=== PATIENT | female | born 1990 | race Caucasian/White ===

== ENCOUNTER 2025-03-20 11:41 | Inpatient (IN) | payer BC, OTHER ==
[2025-03-20] MEDS ORDERED: ACETAMINOPHEN INJECTION 100 ML ONE (12:12)
[2025-03-20] MEDS ORDERED: FAMOTIDINE 20 MG/50 ML IVPB 20 MG/50 ML MG IVPB ONE (12:12)
[2025-03-20] MEDS: ACETAMINOPHEN 1000 MG/100 ML BAG IVPB ONE (12:20)
[2025-03-20] MEDS: FAMOTIDINE 20 MG/50 ML IVPB 20 MG/50 ML MG IVPB ONE (12:36)
[2025-03-20] MEDS ORDERED: MORPHINE SULFATE 2 MG/ML SYRINGE ONE (12:40)
[2025-03-20 12:45] LABS: ABSOLUTE IMMATURE GRANULOCYTES 0.03 x10^3/uL (0.0-0.031); BASOPHILS # 0.02 x10^3/uL (0.01-0.08); EOSINOPHIL % 0.2 % (0.7-5.8); EOSINOPHILS # 0.02 x10^3/uL (0.04-0.36); MCHC 33.2 g/dl (32.2-35.5); MEAN CELL VOLUME 84.7 fl (79.4-94.8); MEAN PLT VOLUME 10.5 fl (9.4-12.3); MONOCYTE # 0.36 x10^3/uL (0.24-0.86); MONOCYTE % 3.9 % (4.7-12.5); RDW 12.1 % (12.1-16.8)
[2025-03-20 12:52] LABS: INR 1.11 (0.83-1.09); PROTHROMBIN TIME (PATIENT) 12.2 SEC (9.7-13.0)
[2025-03-20 12:55] LABS: ACTIVATED PTT 35.1 SECONDS (25.2-36.5)
[2025-03-20 13:01] LABS: EPI CELLS >36 /uL (0-25.1); HYALINE CASTS 4 /uL (0-3.1); URINE APPEARANCE TURBID; URINE BACTERIA 1694 /uL (0-1359); URINE BILIRUBIN 2+ (NEGATIVE); URINE COLOR RED; URINE GLUCOSE (UA) NEGATIVE (NEGATIVE); URINE LEUK ESTERASE 2+ (NEGATIVE); URINE NITRITE POSITIVE (NEGATIVE); URINE PROTEIN 2+ (NEGATIVE); URINE RBC 46 /uL (0-23.9); URINE UROBILINOGEN 1.0 mg/dL (0.2-1.0); URINE WBC 35 /uL (0-25.8)
[2025-03-20 13:19] LABS: URINE CRYSTALS CA OXALATE FEW /hpf
[2025-03-20] MEDS: SODIUM CHLORIDE 0.9% 500 ML INFUS.BAG IV ONE (13:20)
[2025-03-20] MEDS ORDERED: HYDROmorphone HCL CARPU-JECT 2 MG/1 ML DISP.SYRIN ONE (13:35)
[2025-03-20 13:58] LABS: HCV DIAGNOSTIC IN-HOUSE W/RFLX NON-REACTIVE (NONREACTIVE); HIV INTERPRETATION NEGATIVE (NEGATIVE)
[2025-03-20 14:12] LABS: GLUCOSE,RANDOM 81.0 mg/dL (74-106)
[2025-03-20 14:13] LABS: TOT PROT 7.2 g/dl (6.4-8.2)
[2025-03-20 14:14] LABS: CO2 23.0 mmol/L (21-32)
[2025-03-20 14:15] LABS: ALK PHOS 57.0 U/L (40-150)
[2025-03-20 14:18] LABS: CREATININE 0.86 mg/dL (0.55-1.3); SGOT/AST 22.0 U/L (5-34); SGPT/ALT 15.0 U/L (0-55)
[2025-03-20] MEDS ORDERED: FLUCONAZOLE 150 MG TABLET PO ONE (16:29)
[2025-03-20] MEDS: FLUCONAZOLE 150 MG TABLET PO ONE (16:34)
[2025-03-20] MEDS ORDERED: HYDROmorphone HCL CARPU-JECT 2 MG/1 ML DISP.SYRIN IVPUSH ONE (20:14)
[2025-03-20 21:55] VITALS: RESP 18; BMI 25.3
[2025-03-20] MEDS: MELATONIN 5 MG TABLETS PO ONE (23:01)
[2025-03-21] MEDS: diphenhydrAMINE HCL 25 MG CAPSULE (FP) PO ONE (00:59)
[2025-03-21 08:33] LABS: ABSOLUTE IMMATURE GRANULOCYTES 0.01 x10^3/uL (0.0-0.031); BASOPHILS # 0.01 x10^3/uL (0.01-0.08); EOSINOPHIL % 1.1 % (0.7-5.8); EOSINOPHILS # 0.06 x10^3/uL (0.04-0.36); MCHC 32.1 g/dl (32.2-35.5); MEAN CELL VOLUME 86.1 fl (79.4-94.8); MEAN PLT VOLUME 10.5 fl (9.4-12.3); MONOCYTE # 0.25 x10^3/uL (0.24-0.86); MONOCYTE % 4.4 % (4.7-12.5); RDW 12.2 % (12.1-16.8)
[2025-03-21 09:09] LABS: GLUCOSE,RANDOM 106.0 mg/dL (74-106)
[2025-03-21 09:10] LABS: CO2 23.0 mmol/L (21-32)
[2025-03-21 09:15] LABS: CREATININE 0.78 mg/dL (0.55-1.3)
[2025-03-21] MEDS: DEXTROSE 5%-0.45% SALINE 1,000 ML IV SCH (11:00)
[2025-03-21] MEDS: ACETAMINOPHEN 1000 MG/100 ML BAG IVPB PRN (11:34)
[2025-03-21 15:00] VITALS: BP 102/63; PULSE 64; TEMP 97.9
[2025-03-21] MEDS: CEFTRIAXONE 1 GM in DEXTROSE 5%-WATER - 50 ML IVPB SCH (16:09)
== END 2025-03-21 18:27 | disposition home or self-care (01) | DRG 690 ==
LOC: JER 11:41 → JERBED 15:48 → J5S 20:42
PROVIDERS: ADMIT Family Medicine Geriatric Medicine; ATTEND Internal Medicine
DX: N13.6 Pyonephrosis (principal); R10.9 Unspecified abdominal pain
CPT/HCPCS: 36415; 74177-TC; 76830-TC; 80048; 80053; 81003; 83690; 84703; 85025; 85610; 85730; 86803; 86850; 86900; 86901; 87040; 87086; 87389; 99285-25

== ENCOUNTER 2025-04-04 11:42 | Emergency (ER) | payer BC ==
[2025-04-04 12:10] VITALS: BMI 22.6
[2025-04-04] MEDS ORDERED: ACETAMINOPHEN INJECTION 100 ML ONE (12:12)
[2025-04-04] MEDS ORDERED: ONDANSETRON 4 MG/2 ML VIAL ONE (12:13)
[2025-04-04] MEDS: morphine CARPU-JECT 4 MG/1 ML DISP.SYRIN IVPUSH ONE (12:20)
[2025-04-04] MEDS: ACETAMINOPHEN 1000 MG/100 ML BAG IVPB ONE (12:22)
[2025-04-04] MEDS: ONDANSETRON 4 MG/2 ML VIAL IVPUSH ONE (12:22)
[2025-04-04 12:51] LABS: ABSOLUTE IMMATURE GRANULOCYTES 0.03 x10^3/uL (0.0-0.031); BASOPHILS # 0.02 x10^3/uL (0.01-0.08); EOSINOPHIL % 0.4 % (0.7-5.8); EOSINOPHILS # 0.04 x10^3/uL (0.04-0.36); MCHC 32.5 g/dl (32.2-35.5); MEAN CELL VOLUME 85.4 fl (79.4-94.8); MEAN PLT VOLUME 10.9 fl (9.4-12.3); MONOCYTE # 0.41 x10^3/uL (0.24-0.86); MONOCYTE % 4.2 % (4.7-12.5); RDW 12.7 % (12.1-16.8)
[2025-04-04 12:58] LABS: INR 1.04 (0.83-1.09); PROTHROMBIN TIME (PATIENT) 11.3 SEC (9.7-13.0)
[2025-04-04 13:01] LABS: ACTIVATED PTT 32.7 SECONDS (25.2-36.5)
[2025-04-04 13:11] LABS: EPI CELLS >36 /uL (0-25.1); HYALINE CASTS 1 /uL (0-3.1); URINE APPEARANCE CLOUDY; URINE BACTERIA 5 /uL (0-1359); URINE BILIRUBIN NEGATIVE (NEGATIVE); URINE COLOR RED; URINE GLUCOSE (UA) NEGATIVE (NEGATIVE); URINE KETONE NEGATIVE (NEGATIVE); URINE LEUK ESTERASE 2+ (NEGATIVE); URINE NITRITE NEGATIVE (NEGATIVE); URINE PROTEIN 2+ (NEGATIVE); URINE RBC 5405 /uL (0-23.9); URINE UROBILINOGEN 0.2 mg/dL (0.2-1.0); URINE WBC 282 /uL (0-25.8)
[2025-04-04 13:20] LABS: GLUCOSE,RANDOM 91.0 mg/dL (74-106); TOT PROT 6.8 g/dl (6.4-8.2)
[2025-04-04 13:21] LABS: CO2 24.0 mmol/L (21-32)
[2025-04-04 13:23] LABS: ALK PHOS 62.0 U/L (40-150)
[2025-04-04 13:25] LABS: SGOT/AST 19.0 U/L (5-34); SGPT/ALT 15.0 U/L (0-55)
[2025-04-04 13:26] LABS: CREATININE 0.96 mg/dL (0.55-1.3)
[2025-04-04 13:50] LABS: HCV DIAGNOSTIC IN-HOUSE W/RFLX NON-REACTIVE (NONREACTIVE)
[2025-04-04 13:51] LABS: HIV INTERPRETATION NEGATIVE (NEGATIVE)
[2025-04-04] MEDS: SODIUM CHLORIDE 1,000 ML IV STA (14:15)
[2025-04-04] MEDS ORDERED: KETOROLAC TROMETHAMINE 15 MG/ML VIAL IVPUSH ONE (14:58)
[2025-04-04 15:57] VITALS: BP 100/62; PULSE 51; RESP 17; TEMP 97.7
== END 2025-04-04 16:08 | disposition home or self-care (01) ==
LOC: JER 11:42
PROC: 3E033NZ Introduction of Analgesics, Hypnotics, Sedatives into Peripheral Vein, Percutaneous Approach (ICD-10-PCS; principal; 2025-04-04)
PROC: 3E033NZ Introduction of Analgesics, Hypnotics, Sedatives into Peripheral Vein, Percutaneous Approach (ICD-10-PCS; 2025-04-04)
PROC: 3E033GC Introduction of Other Therapeutic Substance into Peripheral Vein, Percutaneous Approach (ICD-10-PCS; 2025-04-04)
PROC: 3E0337Z Introduction of Electrolytic and Water Balance Substance into Peripheral Vein, Percutaneous Approach (ICD-10-PCS; 2025-04-04)
DX: R10.31 Right lower quadrant pain (principal); R11.2 Nausea with vomiting, unspecified; R68.83 Chills (without fever)
CPT/HCPCS: 36415; 74176-TC; 80053; 81003; 83690; 83735; 84703; 85025; 85610; 85730; 86803; 86850; 86900; 86901; 87086; 87389; 93005; 93010; 99285-25

== ENCOUNTER 2025-04-04 18:48 | Observation (INO) | payer BC ==
[2025-04-04] MEDS ORDERED: MORPHINE SULFATE 2 MG/ML SYRINGE ONE ×3 (19:25→23:57)
[2025-04-04] MEDS ORDERED: KETOROLAC TROMETHAMINE 15 MG/ML VIAL ONE (19:26)
[2025-04-04] MEDS: KETOROLAC TROMETHAMINE 15 MG/ML VIAL IVPUSH ONE (19:55)
[2025-04-04] MEDS: morphine CARPU-JECT 2 MG/1 ML DISP.SYRIN IVPUSH ONE ×2 (19:56→19:57)
[2025-04-04] MEDS ORDERED: CEFTRIAXONE 1 GM/50 ML BAG ONE (20:04)
[2025-04-04 20:08] LABS: ABSOLUTE IMMATURE GRANULOCYTES 0.03 x10^3/uL (0.0-0.031); BASOPHILS # 0.02 x10^3/uL (0.01-0.08); EOSINOPHIL % 1.0 % (0.7-5.8); EOSINOPHILS # 0.09 x10^3/uL (0.04-0.36); MCHC 32.7 g/dl (32.2-35.5); MEAN CELL VOLUME 84.6 fl (79.4-94.8); MEAN PLT VOLUME 10.4 fl (9.4-12.3); MONOCYTE # 0.50 x10^3/uL (0.24-0.86); MONOCYTE % 5.3 % (4.7-12.5); RDW 12.6 % (12.1-16.8)
[2025-04-04] MEDS: SODIUM CHLORIDE 500 ML IV STA ×2 (20:24)
[2025-04-04] MEDS: CEFTRIAXONE 1 GM in DEXTROSE 5%-WATER - 100 ML IVPB ONE (20:24)
[2025-04-04 22:05] LABS: GLUCOSE,RANDOM 109.0 mg/dL (74-106); TOT PROT 6.8 g/dl (6.4-8.2)
[2025-04-04 22:07] LABS: CO2 21.0 mmol/L (21-32)
[2025-04-04 22:08] LABS: ALK PHOS 65.0 U/L (40-150)
[2025-04-04 22:11] LABS: CREATININE 0.95 mg/dL (0.55-1.3); SGOT/AST 20.0 U/L (5-34); SGPT/ALT 16.0 U/L (0-55)
[2025-04-05] MEDS: morphine CARPU-JECT 2 MG/1 ML DISP.SYRIN IVPUSH ONE (00:09)
[2025-04-05] MEDS: SODIUM CHLORIDE 1,000 ML IV STA (01:40)
[2025-04-05 04:32] LABS: EPI CELLS 25 /uL (0-25.1); HYALINE CASTS 1 /uL (0-3.1); URINE APPEARANCE CLOUDY; URINE BACTERIA 11 /uL (0-1359); URINE BILIRUBIN NEGATIVE (NEGATIVE); URINE COLOR ORANGE; URINE GLUCOSE (UA) NEGATIVE (NEGATIVE); URINE KETONE NEGATIVE (NEGATIVE); URINE LEUK ESTERASE 2+ (NEGATIVE); URINE NITRITE NEGATIVE (NEGATIVE); URINE PROTEIN 1+ (NEGATIVE); URINE RBC 2778 /uL (0-23.9); URINE UROBILINOGEN 0.2 mg/dL (0.2-1.0); URINE WBC 366 /uL (0-25.8)
[2025-04-05 06:04] VITALS: BMI 25.4
[2025-04-05] MEDS: CEFTRIAXONE 1 GM in DEXTROSE 5%-WATER - 50 ML IVPB SCH (10:11)
[2025-04-05] MEDS ORDERED: POLYETHYLENE GLYCOL (HEALTHYLAX) 3350 17 GM PACKET PO PRN (10:33)
[2025-04-05] MEDS: KETOROLAC TROMETHAMINE 15 MG/ML VIAL IVPUSH PRN (12:02)
[2025-04-05 14:51] VITALS: BP 112/67; PULSE 51; RESP 18; TEMP 98.4
== END 2025-04-05 14:56 | disposition home or self-care (01) ==
LOC: JER 18:48 → JERBED 04-05 00:14 → INTOOBSV 04-05 00:14 → J8W 04-05 03:34
PROVIDERS: ADMIT Internal Medicine; ATTEND Internal Medicine
PROC: 3E03329 Introduction of Other Anti-infective into Peripheral Vein, Percutaneous Approach (ICD-10-PCS; principal; 2025-04-05)
PROC: 3E0333Z Introduction of Anti-inflammatory into Peripheral Vein, Percutaneous Approach (ICD-10-PCS; 2025-04-05)
PROC: 3E033NZ Introduction of Analgesics, Hypnotics, Sedatives into Peripheral Vein, Percutaneous Approach (ICD-10-PCS; 2025-04-05)
PROC: 3E0337Z Introduction of Electrolytic and Water Balance Substance into Peripheral Vein, Percutaneous Approach (ICD-10-PCS; 2025-04-05)
DX: R10.31 Right lower quadrant pain (principal); N30.01 Acute cystitis with hematuria; J45.909 Unspecified asthma, uncomplicated; E28.2 Polycystic ovarian syndrome; Z87.891 Personal history of nicotine dependence
CPT/HCPCS: 36415; 76830-TC; 80053; 81003; 83605; 83690; 85025; 86850; 86900; 86901; 99285-25; G0378